=== PATIENT | male | born 1960 | race Caucasian/White ===

== ENCOUNTER 2018-07-18 18:13 | Emergency (ER) | payer MEDICARE, MEDICAID ==
[~2018-07-18] VITALS: Ht 175.3 cm; Wt 81.6 kg
--- NOTE | 2018-07-18 18:43 | PHYS DOC ---
Past Medical History Past Medical History: Hepatitis Additional Past Medical Histor: HEP C POSITIVE Past Surgical History: No Surgical History Alcohol Use: None Drug Use: None Social History Narrative: DENIES Adult General Chief Complaint Chief Complaint: SYNCOPE HPI HPI Patient is a 57 year old male who presents with near-syncopal episode while attending outdoors sporting event at local [employer]. Patient states began to feel dizzy lightheaded and became diaphoretic and was unable to stand and walk. On EMS arrival, the patient was diaphoretic with a heart rate in the 30s. Patient was also noted be hypotensive. IV was started and fluid boluses given. Patient's symptoms resolved on route to the emergency department by EMS. Patient denies chest pain palpitations, and shortness of breath. Blood sugar is noted to be in the low 100s. Patient has had 2 other prior episodes of near syncope in the past 2 weeks. Prior episodes occurred at home the patient seek medical care for either episode. He denies history of CAD, hypertension, arrhythmia, valvular heart disease. Patient does not participate and routine healthcare. He is a current smoker and drinks occasional alcohol. [] Review of Systems Review of Systems Review symptoms as per history of present illness. All other review symptoms are negative. All other systems were reviewed and found to be within normal limits, except as documented in this note. Current Medications Current Medications Current Medications Medications (Trade) Dose Ordered Sig/Paresh Start Time Stop Time Status Last Admin Dose Admin Albuterol/ Ipratropium (Duoneb) 3 ml 1X ONCE 07/18/18 19:00 07/18/18 19:01 Cancel Methylprednisolone Sodium Succinate (SOLU-Medrol 40MG VIAL) 40 mg 1X ONCE 07/18/18 19:00 07/18/18 19:01 Cancel Allergies Allergies Allergies Coded Allergies Type Severity Reaction Last Updated Verified No Known Drug Allergies 07/18/18 No Physical Exam Physical Exam Constitutional: Well developed, well nourished, no acute distress, non-toxic appearance. [] HENT: Normocephalic, atraumatic, bilateral external ears normal, oropharynx moist. [] Eyes: PERRLA, EOMI, conjunctiva normal. [] Neck: Normal range of motion, no tenderness. [] Cardiovascular:Heart rate regular rhythm, no murmur [] Lungs & Thorax: Respirations nonlabored, diminished[] Abdomen: Bowel sounds normal, soft, no tenderness, no masses. [] Skin: Warm, dry, no erythema. [] Back: No tenderness. [] Extremities: No tenderness, no edema. [] Neurologic: Alert and oriented X 3, no nerves II through XII grossly intact normal motor function, normal sensory function, no focal deficits noted. [] Psychologic: Affect normal, judgement normal, mood normal. [] Current Patient Data Vital Signs Vital Signs Date Time Temp Pulse Resp B/P (MAP) Pulse Ox O2 Delivery O2 Flow Rate FiO2 07/18/18 18:15 98.3 62 22 116/80 (92) 99 Room Air 98.3 Lab Values Laboratory Tests Test 07/18/18 18:35 White Blood Count 8.5 x10^3/uL (4.0-11.0) Red Blood Count 4.75 x10^6/uL (4.30-5.70) Hemoglobin 13.8 g/dL (13.0-17.5) Hematocrit 41.2 % (39.0-53.0) Mean Corpuscular Volume 87 fL (79-100) Mean Corpuscular Hemoglobin 29 pg (25-35) Mean Corpuscular Hemoglobin Concent 34 g/dL (31-37) Red Cell Distribution Width 14.3 % (11.5-14.5) Platelet Count 201 x10^3/uL (140-400) Neutrophils (%) (Auto) 75 % (31-73) H Lymphocytes (%) (Auto) 15 % (24-48) L Monocytes (%) (Auto) 7 % (0-9) Eosinophils (%) (Auto) 2 % (0-3) Basophils (%) (Auto) 1 % (0-3) Neutrophils # (Auto) 6.4 x10^3uL (1.8-7.7) Lymphocytes # (Auto) 1.3 x10^3/uL (1.0-4.8) Monocytes # (Auto) 0.6 x10^3/uL (0.0-1.1) Eosinophils # (Auto) 0.2 x10^3/uL (0.0-0.7) Basophils # (Auto) 0.0 x10^3/uL (0.0-0.2) Sodium Level 138 mmol/L (136-145) Potassium Level 4.6 mmol/L (3.5-5.1) Chloride Level 104 mmol/L (98-107) Carbon Dioxide Level 24 mmol/L (21-32) Anion Gap 10 (6-14) Blood Urea Nitrogen 23 mg/dL (8-26) Creatinine 1.8 mg/dL (0.7-1.3) H Estimated GFR (Cockcroft-Gault) 38.9 Glucose Level 163 mg/dL (70-99) H Calcium Level 8.6 mg/dL (8.5-10.1) Troponin I Quantitative < 0.017 ng/mL (0.000-0.055) Thyroid Stimulating Hormone (TSH) 2.282 uIU/mL (0.358-3.74) Laboratory Tests 07/18/18 18:35 Laboratory Tests 07/18/18 18:35 EKG EKG [EKG: Sinus rhythm, no acute ST-T wave changes.] Radiology/Procedures Radiology/Procedures [Chest x-ray:NAD per radiology report] Course & Med Decision Making Course & Med Decision Making Pertinent Labs and Imaging studies reviewed. (See chart for details) [Patient with recurrent syncope with bradycardia dysrhythmia prior to ED arrival. Vital signs stable, patient asymptomatic while in the emergency department. Lab work nondiagnostic. EKG is normal sinus rhythm without rhythm abnormality. Patient is at high risk for recurrent syncopal event. Recommendations for hospital admission for continued cardiac monitoring, cardiology consult for evaluation for possible pacemaker placement. Patient declines further evaluation and admission at this time. He prefers to follow-up with his local primary care physician for cardiology referral. He verbalizes understanding and the risk of fall, injury or cardiac arrest for untreated underlying arrhythmia. He agrees to return to the emergency department should his symptoms return.] Dragon Disclaimer Dragon Disclaimer This electronic medical record was generated, in whole or in part, using a voice recognition dictation system. Departure Departure Impression: Primary Impression: Near syncope Additional Impression: Bradycardia Disposition: 01 HOME, SELF-CARE Condition: IMPROVED Patient Instructions: Bradycardia-Brief, Near-Syncope, [id number] Additional Instructions: You were evaluated in the emergency department for fainting episode related to a low heart rate. This will require further evaluation by piano stringer and consideration of pacemaker placement. It is important that you follow-up with your local primary care physician as soon as possible for referral to a local piano stringer. In the meantime, you are at risk of continued falls, injury and possible cardiac arrest. If you change your mind regarding hospital admission or his return, call 911 and return to the closest emergency department. Problem Qualifiers IVAN PAVON DO July 18, 2018 18:43
[2018-07-18 18:47] LABS: BASO % 1 % (0-3); EOS # 0.2 x10^3/uL (0.0-0.7); EOS % 2 % (0-3); HEMATOCRIT 41.2 % (39.0-53.0); HEMOGLOBIN 13.8 g/dL (13.0-17.5); LYMPH # 1.3 x10^3/uL (1.0-4.8); LYMPH % 15 % (24-48); MEAN CORPUSCULAR HEMOGLOBIN 29 pg (25-35); MEAN CORPUSCULAR HGB CONC 34 g/dL (31-37); MEAN CORPUSCULAR VOLUME 87 fL (79-100); MONO # 0.6 x10^3/uL (0.0-1.1); MONO % 7 % (0-9); NEUT # 6.4 x10^3uL (1.8-7.7); NEUT % 75 % (31-73); PLATELET COUNT 201 x10^3/uL (140-400); RED BLOOD COUNT 4.75 x10^6/uL (4.30-5.70); RED CELL DISTRIBUTION WIDTH 14.3 % (11.5-14.5); WHITE BLOOD COUNT 8.5 x10^3/uL (4.0-11.0)
[2018-07-18 18:52] LABS: CALCIUM 8.6 mg/dL (8.5-10.1); CREATININE 1.8 mg/dL (0.7-1.3); GFR 38.9; POTASSIUM 4.6 mmol/L (3.5-5.1)
--- NOTE | 2018-07-18 18:57 | RAD ---
AP portable chest radiograph 07/18/2018 Clinical History: Chest pain. An AP erect portable digital radiograph of the chest was obtained. No previous studies are available for comparison. The cardiac silhouette is normal in size. The thoracic aorta is minimally tortuous. No acute pulmonary infiltrate is seen. No pleural effusion or pneumothorax is noted. Degenerative changes are seen involving the thoracic spine. IMPRESSION: No acute abnormality is seen. Electronically signed by: Maxwell Hernandez MD (07/18/2018 6:54 PM) [facility]
[2018-07-18] MEDS ORDERED: methylPREDNISolone SOD SUCC PF 40 MG/ML VIAL. IV ONE (19:00)
[2018-07-18] MEDS ORDERED: IPRATRPIUM/ALBUTEROL 0.5/2.5MG 3 ML NEBU. NEB ONE (19:00)
[2018-07-18 20:15] VITALS: BP 126/73
--- NOTE | 2018-07-19 15:40 | EKG ---
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
== END 2018-07-18 20:29 | disposition home or self-care (01) ==
LOC: ER 18:13
DX: R55 Syncope and collapse (principal); R42 Dizziness and giddiness; R00.1 Bradycardia, unspecified
CPT/HCPCS: 36415; 71045; 80048; 84443; 84484; 85025; 93005; 99285-25